=== PATIENT | female | born 1985 | race Caucasian/White ===

== ENCOUNTER 2017-05-15 15:43 | Emergency (ER) | payer OTHER | END 2017-05-15 21:27 | disposition left against medical advice (07) | LOC: M ED 15:43 | DX: Z53.21 Procedure and treatment not carried out due to patient leaving prior to being seen by health care provider (principal) ==

== ENCOUNTER → 2017-05-15 | Outpatient (REF) | payer OTHER ==
[2017-05-15 18:01] LABS: CHLAMYDIA DNA AMPLIFICATION NEGATIVE (NEGATIVE); GC DNA AMPLIFICATION NEGATIVE (NEGATIVE)
== END ==
LOC: M SFHCLERA 14:48
DX: R10.9 Unspecified abdominal pain (principal)